=== PATIENT | male | born 1965 | race Caucasian/White ===

== ENCOUNTER 2023-02-10 12:43 | Emergency (ER) | payer MEDICAID ==
[~2023-02-10] VITALS: Ht 167.6 cm; Wt 90.7 kg
[2023-02-10 13:12] VITALS: BP 173/98
[2023-02-10 14:16] VITALS: BP 154/98
== END 2023-02-10 14:16 | disposition home or self-care (01) ==
LOC: MED 12:43
DX: M79.672 Pain in left foot (principal); Z79.899 Other long term (current) drug therapy
CPT/HCPCS: 99281

== ENCOUNTER 2023-06-30 10:25 | Day surgery (SDC) | payer OTHER ==
[~2023-06-30] VITALS: Ht 170.2 cm; Wt 90.7 kg
[2023-06-30] MEDS ORDERED: fentaNYL citrate 0.05 MG/ML VIAL ONE (12:25)
[2023-06-30] MEDS ORDERED: fentaNYL citrate 0.05 MG/ML VIAL IVP ONE (12:32)
[2023-06-30] MEDS ORDERED: LIDOCAINE 2% 100 MG/5 ML UJET TP ONE (12:35)
[2023-06-30] MEDS ORDERED: LABETALOL 100 MG/20 ML VIAL ONE (12:49)
[2023-06-30] MEDS ORDERED: LABETALOL 20 MG/4 ML VIAL IVP ONE (12:51)
== END 2023-06-30 13:35 | disposition home or self-care (01) ==
LOC: MOR 10:25 → MMU 10:26 → MOR 13:35
PROVIDERS: ATTEND Internal Medicine Gastroenterology
DX: Z12.11 Encounter for screening for malignant neoplasm of colon (principal); I10 Essential (primary) hypertension; K63.5 Polyp of colon; F17.210 Nicotine dependence, cigarettes, uncomplicated; Z79.899 Other long term (current) drug therapy
CPT/HCPCS: 45385; J3010; J3490